=== PATIENT | female | born 1975 | race Caucasian/White ===

== ENCOUNTER 2020-02-24 04:12 | Emergency (ER) | payer MEDICARE ==
[~2020-02-24] VITALS: Ht 162.6 cm; Wt 72.6 kg
[~2020-02-24 04:12] MED LIST: ABILIFY; ACTIGALL300 MG PO; DESYREL; FAMOTIDINE; VICODIN
[2020-02-24] MEDS ORDERED: SIMVASTATIN80 MG PO (04:27)
[2020-02-24] MEDS ORDERED: CLONAZEPAM 0.50.5 M1 PO (04:28)
[2020-02-24] MEDS ORDERED: METFORMIN HCL500 M3 PO (04:28)
[2020-02-24] MEDS ORDERED: GABAPENTIN100 MG (04:29)
[2020-02-24] MEDS ORDERED: CYCLOBENZAPRINE5 MG PO (04:57)
[2020-02-24] MEDS ORDERED: HYDROCODON-ACE1 EAC7 PO (04:57)
[2020-02-24 05:05] VITALS: BP 109/61
== END 2020-02-24 05:05 | disposition home or self-care (01) ==
LOC: M.ERS 04:12
DX: M54.42 Lumbago with sciatica, left side (principal); Z90.710 Acquired absence of both cervix and uterus; Z90.49 Acquired absence of other specified parts of digestive tract; Z98.890 Other specified postprocedural states